=== PATIENT | female | born 1985 | race Native Hawaiian/Other Pacific Islander ===

== ENCOUNTER → 2018-07-16 | Outpatient (CLI) | payer MEDICAID | LOC: FIMAGING 08:18 | DX: O26.613 Liver and biliary tract disorders in pregnancy, third trimester (principal); O99.343 Other mental disorders complicating pregnancy, third trimester; K76.0 Fatty (change of) liver, not elsewhere classified; F32.9 Major depressive disorder, single episode, unspecified; Z3A.34 34 weeks gestation of pregnancy ==